=== PATIENT | male | born 1960 ===

== ENCOUNTER 2017-05-25 22:14 | Emergency (ER) | payer SELFPAY ==
--- NOTE | 2017-05-25 22:48 | ED PDOC ---
HPI: Psych/Substance Abuse Time Seen by Provider: 05/25/17 22:21 Chief Complaint (Nursing): Alcohol Ingestion Chief Complaint (Provider): Alcohol Intoxication ED Caveat: Intoxicated (alcohol intoxication) History Per: EMS History/Exam Limitations: intoxication Suicide/Self Injury Attempted (Context): None Additional Complaint(s): 56 year old male brought in by EMS for alcohol intoxication. History is unreliable due to patients intoxicated state. The EMS reports that witnesses state that they saw the patient fall face down into the snow while at the bus stop. Questionable LOC. Patient states he only had one beer. Past Medical History Reviewed: Historical Data, Nursing Documentation, Vital Signs Vital Signs: Last Vital Signs Temp 98.1 F 05/25/17 22:16 Pulse 79 05/25/17 22:16 Resp 20 05/25/17 22:16 BP 108/56 L 05/25/17 22:16 Pulse Ox 97 05/25/17 22:39 - Medical History PMH: No Chronic Diseases - Family History Family History: States: Unknown Family Hx - Allergies Allergies/Adverse Reactions: Allergies Allergy/AdvReac Type Severity Reaction Status Date / Time No Known Allergies Allergy Verified 05/25/17 22:19 Review of Systems Review Of Systems: ROS cannot be obtained secondary to pt's inabilty to answer questions. (cannot be obtained due to patients intoxicated state) Physical Exam - Reviewed Nursing Documentation Reviewed: Yes Vital Signs Reviewed: Yes - Physical Exam Appears: Positive for: In Acute Distress (intoxicated) Head Exam: Positive for: NORMOCEPHALIC (+abrasions hemostatic to LET cheek/ temporal area) ENT: Positive for: Pharynx Is (clear) Neck: Positive for: Painless ROM, Supple Cardiovascular/Chest: Positive for: Regular Rate, Rhythm, Chest Non Tender. Negative for: Murmur Respiratory: Positive for: Normal Breath Sounds. Negative for: Wheezing Gastrointestinal/Abdominal: Positive for: Soft. Negative for: Tenderness Back: Positive for: Normal Inspection. Negative for: Decreased ROM Extremity: Positive for: Normal ROM. Negative for: Deformity Lymphatic: Negative for: Adenopathy Neurologic/Psych: Positive for: Gait (unsteady), Other (slurred speech). Negative for: Oriented, Motor/Sensory Deficits - ECG O2 Sat by Pulse Oximetry: 97 (RA) Pulse Ox Interpretation: Normal Medical Decision Making Medical Decision Makin Initial Impression 56 y/o male presenting with alcohol intoxication and head injury Initial Plan: * CT Head w/o Contrast * Alcohol Serum * Accucheck * Reevaluation EXAM: CT Head Without Intravenous Contrast CLINICAL HISTORY: 56 years old, male; Injury or trauma; Injury Facial injury; Initial encounter; Blunt trauma (contusions or hematomas); Additional info: Head injury alcohol intox TECHNIQUE: Axial computed tomography images of the head/brain without intravenous contrast. All CT scans at this facility use one or more dose reduction techniques, viz.: automated exposure control; ma/kV adjustment per patient size (including targeted exams where dose is matched to indication; i.e. head); or iterative reconstruction technique. Coronal and sagittal reformatted images were created and reviewed. COMPARISON: No relevant prior studies available. FINDINGS: Brain: No hemorrhage. No significant white matter disease. No edema. Ventricles: No hydrocephalus. Bones: Deformity of the bilateral lamina papyracea/medial ospina of the orbits, left greater than right. Findings consistent with fracture deformity of indeterminate age. Mild fluid in adjacent sinus. Correlate clinically. Soft tissues: No acute abnormality as visualized. Sinuses: Mild paranasal sinus mucosal thickening. Question polyp or mucous retention cyst at the base of the left maxillary sinus. Mastoid air cells: No mastoid effusion. IMPRESSION: No CT evidence of acute intracranial abnormality. Deformity of the bilateral lamina papyracea/medial ospina of the orbits, left greater than right. Findings consistent with fracture deformity of indeterminate age. Mild fluid in adjacent sinus. Correlate clinically. Mild paranasal sinus mucosal thickening. Question polyp or mucous retention cyst at the base of the left maxillary sinus. Thank you for allowing us to participate in the care of your patient. Dictated and Authenticated by: Mara Cornelius MD 05/25/2017 11:17 PM Eastern Time ([place] & [place]) Elevated BAL. Needs ER observation until sober. 12am Endorsed care to Dr Garcia Documented by Maxine Goddard acting as a scribe for Millie Fragoso MD. All medical record entries made by the Scribe were at my direction and personally dictated by me. I have reviewed the chart and agree that the record accurately reflects my personal performance of the history, physical exam, medical decision making, and the department course for this patient. I have also personally directed, reviewed, and agree with the discharge instructions and disposition. Disposition - Clinical Impression Clinical Impression: Alcohol abuse with intoxication delirium - Disposition Referrals: [facility] [Outside] Disposition: Transfer of Care Disposition Time: 00:00 Condition: GOOD Instructions: Alcohol Intoxication (ED) Print Language: CITIZEN OF [place] Patient Signed Over To: Palak Garcia Handoff Comments: Pending sobriety, reevaluation and final ER disposition
[2017-05-25 23:30] VITALS: O2SAT 97
--- NOTE | 2017-05-26 00:13 | ED PDOC ---
- ECG O2 Sat by Pulse Oximetry: 97 (RA) Medical Decision Making Medical Decision Makin Patient is signed out to me from Dr. Fragoso pending sobriety. 0550 Upon reevaluation patient is alert and awake and ambulated with steady gait. Stable for discharge. Scribe Attestation: Documented by Maggie Pichardo acting as a scribe for Palak Garcia MD. Scribe Attestation: All medical record entries made by the Scribe were at my direction and personally dictated by me. I have reviewed the chart and agree that the record accurately reflects my personal performance of the history, physical exam, medical decision making, and the department course for this patient. I have also personally directed, reviewed, and agree with the discharge instructions and disposition. Disposition Doctor Will See Patient In The: Office Counseled Patient/Family Regarding: Studies Performed, Diagnosis, Need For Followup - Clinical Impression Clinical Impression: Alcohol abuse with intoxication delirium - POA Present On Arrival: None - Disposition Referrals: [facility] [Outside] Disposition: Routine/Home Disposition Time: 06:00 Condition: GOOD Instructions: Alcohol Intoxication (ED) Print Language: SAMI
[2017-05-26 07:36] VITALS: BP 115/60; PULSE 80; RESP 16; TEMP 98.3
--- NOTE | 2017-05-26 09:57 | CT ---
PROCEDURE: CT HEAD WITHOUT CONTRAST. HISTORY: head injury alcohol intox COMPARISON: None available. TECHNIQUE: Axial computed tomography images were obtained through the head/brain without intravenous contrast. Radiation dose: Total exam DLP = 1148.60 mGy-cm. This CT exam was performed using one or more of the following dose reduction techniques: Automated exposure control, adjustment of the mA and/or kV according to patient size, and/or use of iterative reconstruction technique. FINDINGS: HEMORRHAGE: No intracranial hemorrhage. BRAIN: No mass effect or edema. No atrophy or chronic microvascular ischemic changes. VENTRICLES: Unremarkable. No hydrocephalus. CALVARIUM: Unremarkable. PARANASAL SINUSES: Small retention cyst/ polyp inferior left maxillary antrum. MASTOID AIR CELLS: Unremarkable as visualized. No inflammatory changes. OTHER FINDINGS: Old bilateral depressed lamina papyracea fractures. IMPRESSION: No intracranial hemorrhage. Old bilateral depressed lamina papyracea fractures. Small left maxillary retention cyst/ polyp. Preliminary interpretation of this examination was reported by [facility] at 11:17 p.m. on 05/25/2017. There is concurrence of this report with the preliminary interpretation.
== END 2017-05-26 06:45 | disposition home or self-care (01) ==
LOC: H.ER 22:14
DX: F10.231 Alcohol dependence with withdrawal delirium (principal); S09.90XA Unspecified injury of head, initial encounter; S09.93XA Unspecified injury of face, initial encounter; W19.XXXA Unspecified fall, initial encounter; Y92.89 Other specified places as the place of occurrence of the external cause
CPT/HCPCS: 70450; 82948; 99285; G0480